=== PATIENT | female | born 1995 | race American Indian/Alaskan Native ===

== ENCOUNTER 2023-01-21 06:13 | Day surgery (SDC) | payer BC ==
[~2023-01-21] VITALS: Ht 160 cm; Wt 61.7 kg
[~2023-01-21 06:13] MED LIST: ISIBLOOM 28 DA1 EACH PO
[2023-01-21 06:37] VITALS: BP 115/87
[2023-01-21 06:39] LABS: BASOPHILS 0.4 % (0-2); EOSINOPHILS 3.2 % (0-6); HEMATOCRIT 39.2 % (35.0-50.0); LYMPHOCYTES 39.1 % (24-44); MCH 26.7 (27-36); MCHC 33.3 g/dl (30-36); MCV 80.2 fl (81-99); MONOCYTES 5.3 % (0-12); PLATELET COUNT 268 K/uL (140-440); RBC 4.89 M/ul (4.3-5.7); RDW 13.6 (10.5-15.0)
--- NOTE | 2023-01-21 07:51 | NUR ---
01/21/23 0753 Cayla Ervin 9681-PATIENT ARRIVED TO PACU ON 6L MASK RR EVEN. PATIENT NONAROUSABLE SR. IVF INFUSING. REBECA PAD TO VAGINA NO DRAINAGE.
[2023-01-21 08:18] VITALS: BP 104/72
--- NOTE | 2023-01-21 08:22 | NUR ---
ANTIONETTE 0820: PT IS BACK TO DS FROM PACU. ONLY COMPLAINT OF PAIN IS A DRY THROAT. BOYFRIEND IS AT THE BEDSIDE. CALL LIGHT WITHIN REACH. WATER ON BEDSIDE TABLE, SHE IS TOLERATING SIPS OF WATER. NO ADDITIONAL NEEDS OR CONCERNS. DC CRITERIA REVIEWED.
[2023-01-21 09:19] VITALS: BP 102/72
--- NOTE | 2023-01-21 09:34 | NUR ---
LE 0845: PT TURNS CHAINSTITCH SEAT JOINER LIGHT TO GET UP AND USE THE BATHROOM SHE AMBULATES WITHOUT ISSUES TO AND FROM THE BATHROOM, WHERE SHE VOIDS 100MLS OF YELLOW URINE WITH SPECKS OF BLOOD. LE 0922: PT AND BOYFRIEND ARE GIVEN VERBAL AND WRITTEN DC INSTRUCTIONS. THEY BOTH VERBALIZE UNDERSTANDING. QUESTIONS ARE ASKED AND ANSWERED. SHE IS TAKEN TO PERSONAL VEHICLE VIA WC. SHE IS ABLE TO TRANSFER HERSELF FROM WC TO VEHICLE WITHOUT ISSUES.
--- NOTE | 2023-01-22 08:56 | OR ---
[facility] [address] [place] [address] Signed DATE OF OPERATION: 01/21/2023 SURGEON: Julissa Waite MD PREOPERATIVE DIAGNOSIS: CIN2. POSTOPERATIVE DIAGNOSIS: CIN2, pending pathology. PROCEDURE: Loop electrosurgical excision procedure. ANESTHESIA: General LMA. ESTIMATED BLOOD LOSS: Minimal. DRAINS: None. INDICATIONS AND FINDINGS: The patient is a 27-year-old female, who was recently found to have ABEL 2 on colposcopy and biopsy of the cervix. It was recommended she undergo a LEEP procedure. The risks of the procedure including infection, bleeding, as well as potential scarring and weakening of the cervix were previously discussed. At the time of surgery, her exam was normal. At the time of the LEEP, there was a small area of nonstaining cervix from 9-3 o'clock. DESCRIPTION OF PROCEDURE: The patient was prepped and draped in the dorsal lithotomy position. An insulated speculum was placed. Cervix was stained with Lugol solution as well as the upper vagina. The nonstaining area was visualized. The wide shallow loop was then used to shave off the exocervix. A 2nd smaller specimen was taken of the endocervical canal. The base of the LEEP was treated with the ball cautery with good results. There was some bleeding at the posterior aspect which required further cauterization. Monsel's solution was also used on the cervix. Good hemostasis was noted and the speculum tension released with continued hemostasis. The speculum was removed and the patient taken to the recovery room in good condition. All sponge and needle counts were Electronically Signed By: JULISSA WAITE MD 01/22/23 0856 PATIENT NAME: ANITHA VILLARREAL OPERATIVE REPORT DATE OF : [birth year] REPORT #: [id number] PHYSICIAN: JULISSA WAITE MD PCP: [facility] REPORT IS CONFIDENTIAL AND NOT TO BE RELEASED WITHOUT AUTHORIZATION [address] [place], [place] [address] Signed correct. She tolerated the procedure well. Julissa Waite MD PJW/MODL /[id number] cc: Hansa Copies: ~ Electronically Signed By: JULISSA WAITE MD 01/22/23 0856 PATIENT NAME: ANITHA VILLARREAL OPERATIVE REPORT DATE OF : [birth year] REPORT #: [id number] PHYSICIAN: JULISSA WAITE MD PCP: [facility] REPORT IS CONFIDENTIAL AND NOT TO BE RELEASED WITHOUT AUTHORIZATION
--- NOTE | 2023-01-27 12:48 | PATH ---
[facility] [address] [facility] [facility] [facility] [place], [place] [address] Signed SPECIMEN(S): A ECTOCERVIX SPECIMEN(S): B ENDOCERVIX SPECIMEN SOURCE: A. ECTOCERVIX B. ENDOCERVIX CLINICAL HISTORY: ABEL II, LEEP procedure FINAL PATHOLOGIC DIAGNOSIS: A. Ectocervix: - High grade squamous intraepithelial lesion (moderate squamous dysplasia, ABEL 2). B. Endocervix: - Low grade squamous intraepithelial lesion (mild squamous dysplasia, ABEL 1). COMMENT: The most recent cervical cytology ([id number], SIL) is reviewed. JVR:[facility] MICROSCOPIC EXAMINATION: Histologic sections of all submitted blocks are examined by light microscopy. These findings, together with the gross examination, support the pathologic diagnosis. P16 immunostain is performed with appropriate controls on block (A1) and is positive for full-thickness epithelial staining, supporting the diagnosis. JVR:[facility] GROSS DESCRIPTION: A. The specimen, labeled and designated "[place], exocervix," is received in formalin and consists of a pink-jasmine fragmented piece of cervix (1.7 x 1.5 x 0.6 cm). The specimen is submitted entirely in cassette (A1). B. The specimen, labeled and designated "[place]il[place], endocervix," is received in formalin and consists of a red to pink-jasmine fragmented piece of cervix (1.5 x 1.0 x 0.6 cm). The specimen is submitted entirely in cassette (B1). VB (under the direct supervision of a pathologist) The Gross Description was prepared using a voice recognition system. The report was reviewed for accuracy; however, sound-alike word errors, addition and/or PATIENT NAME: ANITHA VILLARREAL PATHOLOGY DATE OF : [birth year] REPORT #: [id number] PHYSICIAN: THANH PATHOLOGY PCP: [facility] REPORT IS CONFIDENTIAL AND NOT TO BE RELEASED WITHOUT AUTHORIZATION [facility] [address] [place], [place] [address] Signed deletions may occur. If there is any question about this report, please contact Client Services. PERFORMING LABORATORY: Technical component was performed by [facility], [address] [place] [id number] (CLIA# [id number]). Professional interpretation was performed by [facility] - [facility], [address] [place] [id number] (CLIA#: [id number]). Diagnostician: Michael Rodriguez MD Pathologist Electronically Signed 01/27/2023 Copies: ~ PATIENT NAME: ANITHA VILLARREAL PATHOLOGY DATE OF : [birth year] REPORT #: [id number] PHYSICIAN: THANH PATHOLOGY PCP: [facility] REPORT IS CONFIDENTIAL AND NOT TO BE RELEASED WITHOUT AUTHORIZATION
== END 2023-01-21 09:25 | disposition home or self-care (01) ==
LOC: DS 06:13 → OPS 06:13 → DS 07:00 → OPS 09:25 → DS 09:30
PROVIDERS: ATTEND Obstetrics & Gynecology
PROC: 0UBC7ZZ Excision of Cervix, Via Natural or Artificial Opening (ICD-10-PCS; principal; 2023-01-21 07:00)
DX: N87.1 Moderate cervical dysplasia (principal)
CPT/HCPCS: 00940; 36415; 84703; 85025; J1100; J1885; J2250; J2405; J2704; J2765; J3010; J7121